=== PATIENT | male | born 1970 | race Caucasian/White ===

== ENCOUNTER 2020-05-02 17:55 | Emergency (ER) | payer BC, MEDICAID ==
[~2020-05-02] VITALS: Ht 172.7 cm; Wt 87.0 kg
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
[2020-05-02] MEDS ORDERED: LORazepam 1 MG tablet PO ONE (18:35)
[2020-05-02] MEDS ORDERED: TRAZ-251 PO (18:51)
[2020-05-02 18:59] VITALS: BP 158/97
== END 2020-05-02 19:00 | disposition home or self-care (01) ==
LOC: ER 17:58
DX: F41.9 Anxiety disorder, unspecified (principal)
CPT/HCPCS: 99283

== ENCOUNTER 2021-10-07 18:21 | Emergency (ER) | payer BC ==
[~2021-10-07] VITALS: Ht 172.7 cm; Wt 100.0 kg
[~2021-10-07 18:21] MED LIST: TRAZ-251 PO
[2021-10-07 19:21] LABS: CLARITY,URINE CLEAR (Clear); COLOR,URINE YELLOW (Yellow); GLUCOSE, URINE NEGATIVE (Neg); KETONES,URINE 15 mg/dl (Neg); LEUKOCYTE ESTERASE ,URINE NEGATIVE (Neg); NITRITES, URINE NEGATIVE (Neg); OCCULT BLOOD,URINE MODERATE (Neg); PROTEIN,URINE NEGATIVE (Neg); UROBILINOGEN,URINE 0.2 E.U/dL (0.2-1.0)
[2021-10-07 19:24] LABS: UA COLLECTION TYPE CLN CATCH MIDSTREAM
[2021-10-07 19:34] LABS: BACTERIA,URINE FEW /HPF (Neg); MUCUS STRANDS NONE SEEN /LPF (Neg); SQUAMOUS EPITHELIAL CELL,UR FEW /LPF (FEW)
[2021-10-07 23:36] LABS: BASOPHILS % (AUTO) 0.3 % (0-1); EOSINOPHILS # (AUTO) 0.1 X10'3 (0-0.9); EOSINOPHILS % (AUTO) 0.7 % (0-6); HEMATOCRIT 41.4 % (42.0-52.0); HEMOGLOBIN 14.1 g/dl (14.0-17.9); LYMPHOCYTES % (AUTO) 13.8 % (21-51); MEAN CORPUSCULAR HEMOGLOBIN 30.7 PG (27.0-31.0); MEAN CORPUSCULAR HGB CONC 34.2 g/dL (33.0-36.5); MEAN CORPUSCULAR VOLUME 89.8 FL (78-98); MONOCYTES # (AUTO) 0.7 X10'3 (0-0.9); MONOCYTES % (AUTO) 9.9 % (2-12); NEUTROPHILS # (AUTO) 5.5 X10'3 (1.8-7.7); NEUTROPHILS % (AUTO) 75.3 % (42-75); PLATELET COUNT 173 X10'3 (140-440); RED BLOOD COUNT 4.61 X10'6 (4.70-6.10); RED CELL DISTRIBUTION WIDTH 12.9 % (11.5-14.5); WHITE BLOOD COUNT 7.2 X10'3 (4.5-11.0)
--- NOTE | 2021-10-07 23:39 | NUR ---
Pt back from radiology. Clio, alert, no acute/resp distress.
[2021-10-07 23:51] LABS: ALANINE AMINOTRANSFERASE 47 U/L (12-78); ALBUMIN 3.7 G/DL (3.4-5.0); ALBUMIN/GLOBULIN RATIO 1.2 (1.1-1.5); ALKALINE PHOSPHATASE 58 IU/L (46-116); ANION GAP 12 (8-16); ASPARTATE AMINO TRANSFERASE 27 U/L (10-37); BILIRUBIN,TOTAL 1.8 MG/DL (0.1-1.0); BLOOD UREA NITROGEN 13 MG/DL (7-18); BUN/CREATININE RATIO 8.1 (5.4-32.0); CALCIUM 8.7 MG/DL (8.5-10.1); CHLORIDE 103 MMOL/L (99-107); CREATININE 1.61 MG/DL (0.60-1.10); GLUCOSE 106 MG/DL (70-104); POTASSIUM 3.7 MMOL/L (3.5-5.1); SODIUM 138 MMOL/L (135-145); TOTAL CARBON DIOXIDE 23.1 MMOL/L (24-32); TOTAL PROTEIN 6.9 G/DL (6.4-8.2); eGFR 45 ML/MIN
[2021-10-08] MEDS ORDERED: ONDA4TAB12 PO (00:06)
[2021-10-08] MEDS ORDERED: KETO10TA2 PO (00:06)
[2021-10-08] MEDS ORDERED: HYDR-3965 PO (00:06)
[2021-10-08] MEDS ORDERED: TADA20TA PO (00:06)
[2021-10-08 00:42] VITALS: BP 153/101
== END 2021-10-08 00:44 | disposition home or self-care (01) ==
LOC: ER 18:22
DX: N20.1 Calculus of ureter (principal); N13.30 Unspecified hydronephrosis; R10.31 Right lower quadrant pain; R11.2 Nausea with vomiting, unspecified; R30.9 Painful micturition, unspecified; I10 Essential (primary) hypertension; Z72.89 Other problems related to lifestyle; Z88.8 Allergy status to other drugs, medicaments and biological substances; Z79.899 Other long term (current) drug therapy
CPT/HCPCS: 36415; 74176; 80053; 81001; 85025; 87088; 99284

== ENCOUNTER 2023-10-03 17:06 | Outpatient (CLI) | payer MEDICAID ==
[~2023-10-03 17:06] MED LIST changes: +KETO10TA2 PO; +ONDA4TAB12 PO; +TADA20TA PO
== END 2023-10-03 23:59 | disposition home or self-care (01) ==
LOC: RAD 17:06
PROVIDERS: ATTEND Nurse Practitioner Family
DX: M19.072 Primary osteoarthritis, left ankle and foot (principal); M77.32 Calcaneal spur, left foot; M25.572 Pain in left ankle and joints of left foot
CPT/HCPCS: 73610